=== PATIENT | female | born 1985 | race Two or more races ===

== ENCOUNTER 2021-04-05 21:34 | Emergency (ER) | payer BC ==
[~2021-04-05] VITALS: Ht 175.3 cm; Wt 65.0 kg
[2021-04-05] MEDS ORDERED: DOXYCYCLINE 100MG TABLET PO ONE (23:30)
[2021-04-05] MEDS ORDERED: DOXYCYCLINE 100MG TABLET ONE (23:36)
[2021-04-06 00:23] VITALS: BP 144/82
== END 2021-04-06 00:36 | disposition home or self-care (01) ==
LOC: ED 04-06
DX: K02.9 Dental caries, unspecified (principal); K04.7 Periapical abscess without sinus
CPT/HCPCS: 99283